=== PATIENT | female | born 1995 | race African-American/Black ===

== ENCOUNTER → 2016-04-27 | Outpatient (CLI) | payer MEDICAID ==
[2016-04-27 12:03] LABS: Basophils # (auto) 0 uL; Basophils % (auto) 0.6 % (0.0-2.0); DEFINITIVE VIEW TRANSMISSION; Eosinophils # (auto) 0 uL; Eosinophils % (auto) 0.9 % (0.0-7.0); Hematocrit 34.7 % (36.0-46.0); Hemoglobin 10.7 g/dL (12.2-16.2); Lymphocytes # (auto) 1.3 uL; Mean Corpuscular Hemoglobin 24.7 pg (28.0-32.0); Mean Corpuscular Hgb Conc. 30.9 g/dL (32.0-36.0); Mean Platelet Volume 8.7 fL (7.4-10.4); Monocytes # (auto) 0.3 uL; Neutrophils # (auto) 2.1 uL; Neutrophils % (auto) 55.5 % (37.0-80.0); Platelet Count (auto) 237 10^3/uL (140-450); White Blood Cell 3.9 10^3/uL (4.4-10.8)
[2016-04-27 12:18] LABS: Red Cell Distribution Width 21.9 % (11.6-16.0)
== END | disposition home or self-care (01) ==
LOC: LAB 10:58
PROVIDERS: ATTEND Specialist
DX: Z31.430 Encounter of female for testing for genetic disease carrier status for procreative management (principal); Z34.00 Encounter for supervision of normal first pregnancy, unspecified trimester; Z11.3 Encounter for screening for infections with a predominantly sexual mode of transmission
CPT/HCPCS: 36415; 83036; 85025; 86703; 86762; 86850; 86900; 86901; 87086; 87340; G0434

== ENCOUNTER 2017-06-27 22:24 | Emergency (ER) | payer MEDICAID, OTHER ==
[~2017-06-27] VITALS: Ht 157.5 cm; Wt 122.5 kg
[2017-06-27 22:30] VITALS: BP 156/70
[2017-06-27 23:11] LABS: Urine Bacteria FEW /hpf (None Seen); Urine Blood 2+ /uL (Negative); Urine Mucus FEW (None Seen); Urine Specific Gravity 1.024 (1.001-1.035); Urine WBC 702 /hpf (0 - 5)
[2017-06-28] MEDS ORDERED: cefTRIAXone SOD 1,000 MG VL IM ONE (00:45)
[2017-06-28] MEDS ORDERED: PHENAZOPYRIDINE HCL 100 MG TAB PO ONE (00:45)
== END 2017-06-28 01:30 | disposition home or self-care (01) ==
LOC: ER 22:24
DX: N39.0 Urinary tract infection, site not specified (principal)
CPT/HCPCS: 81001; 81025; 96372; 99284; J0696

== ENCOUNTER 2021-11-07 22:51 | Emergency (ER) | payer MEDICAID, OTHER ==
[~2021-11-07] VITALS: Ht 160 cm; Wt 131.6 kg
[2021-11-07 23:11] VITALS: BP 114/93
[2021-11-07 23:40] LABS: Monocytes # (auto) 0.4 10 ^3/uL (0-1.3); White Blood Cell 5.9 10^3/uL (4.4-10.8)
[2021-11-07 23:41] LABS: Basophils # (auto) 0 10 ^3/uL (0-0.2); Basophils % (auto) 0.4 % (0.0-2.0); Eosinophils # (auto) 0.3 10 ^3/uL (0-0.8); Eosinophils % (auto) 4.3 % (0.0-7.0); Hematocrit 37.9 % (36.0-46.0); Hemoglobin 12.3 g/dL (12.2-16.2); Lymphocytes # (auto) 2.3 10 ^3/uL (0.4-5.4); Lymphocytes % (auto) 39.8 % (10.0-50.0); Mean Corpuscular Hemoglobin 26.2 pg (28.0-32.0); Mean Corpuscular Hgb Conc. 32.4 g/dL (32.0-36.0); Mean Corpuscular Volume 80.9 fL (80.0-100.0); Monocytes % (auto) 6.9 % (0.0-12.0); Neutrophils # (auto) 2.9 10 ^3/uL (1.6-8.6); Neutrophils % (auto) 48.6 % (37.0-80.0); Nucleated Red Blood Cells % 0.2 %; Red Blood Cells 4.69 10^6/uL (4.0-5.20); Red Cell Distribution Width 14.1 % (11.8-14.3)
[2021-11-07 23:53] LABS: Albumin 3.7 g/dL (3.4-5.0); Calcium 9.1 mg/dL (8.5-10.1); Magnesium 2.1 mg/dL (1.6-2.6); Potassium 3.9 mmol/L (3.5-5.1)
[2021-11-07 23:56] LABS: Bilirubin, Total 0.4 mg/dL (0.2-1.0); Total Protein 7.8 g/dL (6.4-8.2)
== END 2021-11-08 05:55 | disposition home or self-care (01) ==
LOC: ER 22:51
DX: R07.89 Other chest pain (principal)
CPT/HCPCS: 36415; 80053; 83735; 84484; 85025